=== PATIENT | female | born 1950 | race Caucasian/White ===

== ENCOUNTER 2016-03-31 15:45 | Emergency (ER) | payer MEDICARE, OTHER ==
[2016-03-31 16:05] VITALS: TEMP 98.1
--- NOTE | 2016-03-31 16:35 | ED.PDOC ---
History of Present Illness - General Chief Complaint: Neuro Symptoms/Deficits Stated Complaint: change in mental status Time Seen by Provider: 03/31/16 16:07 Source: RN notes reviewed, Vital Signs reviewed, EMS, [facility] records Exam Limitations: clinical condition - History of Present Illness Initial Comments: Patient is a 66 y/o [facility] patient who was sent due to altered mental status. It is unclear what her baseline is, however she was less responsive than usual per the [facility]. Upon arrival, patient vascillates between being minimally responsive to unresponsive. Patient was recently discharged from [facility] [place] for hydrocephalus which has been affecting her mental status. Timing/Duration: unsure, getting worse Severity: severe Improving Factors: nothing Worsening Factors: nothing Associated Symptoms: other - When asked if anything hurt, Patient shook her head no. Unable to ascertain any other symptoms. Allergies/Adverse Reactions: Allergies Amoxicillin Allergy (Verified 10/20/13 14:54) Cephalexin [From Keflex] Allergy (Verified 10/20/13 14:54) Cyclobenzaprine [From Flexeril] Allergy (Verified 10/20/13 14:54) Meperidine [From Demerol HCl] Allergy (Verified 10/20/13 14:54) Midazolam [From Versed] Allergy (Verified 10/20/13 14:54) Vancomycin Allergy (Verified 10/20/13 14:54) Home Medications: Ambulatory Orders Celecoxib [Celebrex] 200 mg PO BID 10/13/13 DULoxetine HCL [Cymbalta] 60 mg PO BEDTIME 10/13/13 Trazodone HCl 50 mg PO BEDTIME 04/22/14 Mesalamine [Delzicol] 800 mg PO BID 09/13/14 Oxycodone W/ Acetaminophen [Oxycodone/Acetaminophen 10-325 mg] 1 tab PO .Q4-6H PRN 09/13/14 Ranitidine HCl [Acid Control Maximum Stre] 150 mg PO BEDTIME 09/13/14 Simvastatin [Zocor] 20 mg PO BEDTIME 09/13/14 predniSONE [Prednisone] 1 mg PO DAILY 09/13/14 Acitretin [Soriatane] 10 mg PO DAILY@1200 02/19/16 Escitalopram Oxalate [Lexapro] 10 mg PO BEDTIME 02/19/16 Quetiapine Fumarate 50 mg PO BEDTIME 03/07/16 Lacosamide [Vimpat] 100 mg PO BID 03/31/16 Lactobacillus [Acidophilus] 1 cap PO DAILY 03/31/16 Oxcarbazepine [Trileptal] 150 mg PO BID 03/31/16 Review of Systems - Review of Systems Unable to Obtain Due To: clinical condition Past Medical History (General) - Patient Medical History Hx Seizures: No Hx Stroke: No Hx Dementia: Yes Hx Asthma: No Hx of COPD: No Hx Cardiac Disorders: No Hx Congestive Heart Failure: No Hx Pacemaker: No Hx Hypertension: Yes Hx Thyroid Disease: Yes Hx Diabetes: No Hx Gastroesophageal Reflux: Yes Hx Cancer: No Hx Hepatitis C: No Hx MRSA: No - Vaccination History Hx Tetanus, Diphtheria Vaccination: Yes Hx Influenza Vaccination: - unknown Hx Pneumococcal Vaccination: - unknown - Social History Hx Tobacco Use: No Hx Chewing Tobacco Use: No Hx Alcohol Use: No Hx Substance Use: No Hx Substance Use Treatment: No Hx Depression: No Hx Physical Abuse: No Hx Emotional Abuse: No Hx Suspected Abuse: No - Activities of Daily Living Group Home/Assisted Living (if applicable):: [facility] - Female History Patient : No Family Medical History - Family History Mother Family History: Unknown Living Status: Cause of : RA Hx Family Asthma: No Hx Family Congestive Heart Failure: No Hx Family Hypertension: Yes Hx Family Stroke: No Hx Cardiac Disease: No Hx Family Diabetes: Yes Hx Family Cancer: No Hx Family;Other: mother has RA Father Living Status: Hx Family Asthma: No Hx Family Congestive Heart Failure: No Hx Family Hypertension: No Hx Family Stroke: No Hx Cardiac Disease: No Hx Family Diabetes: No Hx Family Cancer: Yes Physical Exam - Physical Exam General Appearance: Lethargic Eye Exam: bilateral normal Ears, Nose, Throat: hearing grossly normal, normal ENT inspection, other - dry mucous membranes Neck: limited range of motion Respiratory: lungs clear, normal breath sounds, no respiratory distress, no accessory muscle use Cardiovascular/Chest: normal peripheral pulses, no edema, no gallop, no murmur, tachycardia Peripheral Pulses: dorsalis pedis,right: 2+, dorsalis pedis,left: 2+, posterior tibialis,right: 2+, posterior tibialis,left: 2+ Gastrointestinal/Abdominal: normal bowel sounds, non tender, soft, no organomegaly, no pulsatile mass Extremity: no pedal edema, no calf tenderness Neurologic: motor weakness, depressed affect, disoriented x 3, other - Patient would vascillate between a GCS of 4 to a GCS of 14 during her stay. Skin Exam: normal color, warm/dry Progress - Results/Orders Results/Orders: 03/31/16 03/31/16 15:57 17:13 Temperature 98.1 F Pulse Rate [ 105 H 100 H Left Brachial] Respiratory 20 20 Rate Blood Pressure 130/104 124/80 [Left Arm] O2 Sat by Pulse 91 L 95 Oximetry 03/31/16 16:13 EKG Assessment ONCE 03/31/16 16:15 EKG STAT 03/31/16 16:40 URINE CULTURE W/COLONY COUNT Stat 03/31/16 18:38 BLOOD CULTURE Stat 03/31/16 18:45 Aztreonam [Azactam Inj] 1 gm Sodium Chl 0.9% 50Ml Min-Bag+ [NS 50ml MINI-BAG+ ] 50 ml IVPB ONCE Laboratory Results WBC 9.9 K/mm3 (4.8-10.8) 03/31/16 16:45 RBC 5.07 M/mm3 (4.20-5.40) 03/31/16 16:45 Hgb 13.8 gm/dL (12.0-16.0) 03/31/16 16:45 Hct 43.1 % (36.0-47.0) 03/31/16 16:45 MCV 84.9 fl (81.0-99.0) 03/31/16 16:45 MCH 27.2 pg (27.0-31.0) 03/31/16 16:45 MCHC 32.1 g/dL (33.0-37.0) L 03/31/16 16:45 RDW 14.4 % (11.5-14.5) 03/31/16 16:45 Plt Count 293 K/mm3 (130-400) 03/31/16 16:45 MPV 9.6 fl (7.40-10.4) 03/31/16 16:45 Absolute Neuts (auto) 6.50 K/uL (1.8-6.8) 03/31/16 16:45 Absolute Lymphs (auto) 1.90 K/uL (1.0-3.4) 03/31/16 16:45 Absolute Monos (auto) 1.10 K/uL (0.2-0.8) H 03/31/16 16:45 Absolute Eos (auto) 0.30 K/uL (0.0-0.4) 03/31/16 16:45 Absolute Basos (auto) 0.10 K/uL (0.0-0.1) 03/31/16 16:45 Neutrophils % 65.5 % (42.0-78.0) 03/31/16 16:45 Lymphocytes % 19.6 % (20.0-50.0) L 03/31/16 16:45 Monocytes % 10.6 % (2.0-9.0) H 03/31/16 16:45 Eosinophils % 3.3 % (1.0-5.0) 03/31/16 16:45 Basophils % 1.0 % (0.0-2.0) 03/31/16 16:45 Sodium 140 mmol/L (135-145) 03/31/16 16:45 Potassium 4.0 mmol/L (3.6-5.0) 03/31/16 16:45 Chloride 104 mmol/L (101-111) 03/31/16 16:45 Carbon Dioxide 29 mmol/L (21-31) 03/31/16 16:45 Anion Gap 11.0 (12-18) L 03/31/16 16:45 BUN 19 mg/dL (7-18) H 03/31/16 16:45 Creatinine 0.62 mg/dL (0.6-1.3) 03/31/16 16:45 BUN/Creatinine Ratio 30.6 (10-20) H 03/31/16 16:45 Random Glucose 114 mg/dL (70-105) H 03/31/16 16:45 Serum Osmolality 282.5 mOsm/L (275-295) 03/31/16 16:45 Calcium 9.2 mg/dL (8.4-10.2) 03/31/16 16:45 Total Bilirubin 0.5 mg/dL (0.2-1.0) 03/31/16 16:45 AST 47 IU/L (10-42) H 03/31/16 16:45 ALT 20 IU/L (10-60) 03/31/16 16:45 Alkaline Phosphatase 109 IU/L (42-121) 03/31/16 16:45 Serum Total Protein 7.3 gm/dL (6.4-8.2) 03/31/16 16:45 Albumin 3.3 g/dl (3.2-5.5) 03/31/16 16:45 Globulin 4.0 gm/dL (2.3-3.5) H 03/31/16 16:45 Albumin/Globulin Ratio 0.8 (1.1-1.9) L 03/31/16 16:45 Urine Color Brown (Yellow) H 03/31/16 16:40 Urine Appearance Turbid (Clear) 03/31/16 16:40 Urine pH 6.0 (4.5-7.8) 03/31/16 16:40 Ur Specific Letts 1.025 (1.005-1.030) 03/31/16 16:40 Urine Protein 100 mg/dL H 03/31/16 16:40 Urine Glucose (UA) Negative mg/dL (Negative) 03/31/16 16:40 Urine Ketones 80 mg/dL (NEGATIVE) H 03/31/16 16:40 Urine Blood Large (Negative) H 03/31/16 16:40 Urine Nitrite Positive H 03/31/16 16:40 Urine Bilirubin Small (NEGATIVE) H 03/31/16 16:40 Urine Urobilinogen 1.0 mg/dL (0.2-1.0) 03/31/16 16:40 Ur Leukocyte Esterase Small (Negative) H 03/31/16 16:40 Urine RBC Tntc /hpf H 03/31/16 16:40 Urine WBC Tntc /hpf H 03/31/16 16:40 Ur Epithelial Cells Obscured by rbc's /hpf 03/31/16 16:40 Amorphous Sediment 3+ 03/31/16 16:40 Urine Bacteria 4+ H 03/31/16 16:40 - EKG/XRAY/CT XRAY: chest Xray Comments: Unremarkable CT: Head: Increased ventriculomegaly CT Ordered: Yes Departure - Departure Clinical Impression: Cerebral ventriculomegaly Altered mental status Qualifiers: Altered mental status type: transient alteration of awareness Qualifier Code: ( R40.4) Transient alteration of awareness Urinary tract infection Qualifiers: Urinary tract infection type: site unspecified Hematuria presence: without hematuria Qualifier Code: (N39.0) Urinary tract infection, site not specified Time of Disposition: 18:53 Disposition: Transfer to Hospital Condition: Poor Departure Forms: ED Discharge - Pt. Copy, Patient Portal Self Enrollment Home Medications: Ambulatory Orders Celecoxib [Celebrex] 200 mg PO BID 10/13/13 DULoxetine HCL [Cymbalta] 60 mg PO BEDTIME 10/13/13 Trazodone HCl 50 mg PO BEDTIME 04/22/14 Mesalamine [Delzicol] 800 mg PO BID 09/13/14 Oxycodone W/ Acetaminophen [Oxycodone/Acetaminophen 10-325 mg] 1 tab PO .Q4-6H PRN 09/13/14 Ranitidine HCl [Acid Control Maximum Stre] 150 mg PO BEDTIME 09/13/14 Simvastatin [Zocor] 20 mg PO BEDTIME 09/13/14 predniSONE [Prednisone] 1 mg PO DAILY 09/13/14 Acitretin [Soriatane] 10 mg PO DAILY@1200 02/19/16 Escitalopram Oxalate [Lexapro] 10 mg PO BEDTIME 02/19/16 Quetiapine Fumarate 50 mg PO BEDTIME 03/07/16 Lacosamide [Vimpat] 100 mg PO BID 03/31/16 Lactobacillus [Acidophilus] 1 cap PO DAILY 03/31/16 Oxcarbazepine [Trileptal] 150 mg PO BID 03/31/16 Transfer to Outside Facility - Transfer Information Accepting Provider:: Dr. Rojas Accepting Facility: [facility] [place] Reason for Transfer: required specialist not available - Neurologist
--- NOTE | 2016-03-31 16:55 | RAD ---
EXAM DESCRIPTION: XR CHEST 1 VIEW CLINICAL HISTORY: Altered mental status COMPARISON: 07 March 2016. TECHNIQUE: AP portable chest FINDINGS: Bilateral shoulder arthroplasties are observed. A poor inspiratory effect is noted. The heart is within the range of normal. IMPRESSION: Poor inspiratory effect otherwise unremarkable chest. Electronically signed by: Didier Saucedo MD 03/31/2016 16:54
--- NOTE | 2016-03-31 17:01 | CT ---
EXAM DESCRIPTION: CT HEAD WITHOUT IV CONTRAST CLINICAL HISTORY: 66-year-old female with altered mental status. COMPARISON: 03/07/2016. TECHNIQUE: CT brain without contrast. FINDINGS: Examination findings are limited by patient motion artifact. Multifocal regions of patchy hypo-attenuation are present in a subcortical and periventricular deep white matter distribution, nonspecific; however, most likely represent small vessel ischemic disease, age indeterminate. The ventricles and sulci are enlarged suggesting underlying volume loss, however the ventricles appear to be disproportionately enlarged in relation to the sulci raising the concern for normal pressure hydrocephalus or other ventriculomegaly of uncertain etiology in the correct clinical setting. Overall the ventricles are similar in size in comparison to the previous examination dated 03/07/2016. Periventricular deep white matter decreased attenuation may be secondary to extensive small vessel ischemic change, however transependymal fluid in the setting of acute ventriculomegaly cannot be completely excluded. While difficult to assess given differences in patient positioning, there appear to be interval increase in ventriculomegaly compared to examination dated 02/19/2016 currently measuring approximately 2 cm, previously 1.7 cm at the level of the lateral ventricle high convexity, and increased from pre MRI dated 11/21/2014 measuring 1.3 cm. The rodríguez-white matter differentiation is preserved. There is no mass effect,midline shift, intra- or extra-axial fluid collection/acute hemorrhage. The osseous structures are within normal limits. The paranasal sinuses reveal near-complete opacification concerning for chronic sinus disease. The mastoid air cells are clear on the left with post surgical changes of prior mastoidectomy on the right. IMPRESSION: 1. Increasing ventricular volumes as detailed above in comparison to examination dated 02/19/2016 and MRI dated 11/21/2014 raising the concern for increasing ventriculomegaly of uncertain etiology. 2. Nonspecific white matter change most likely small vessel ischemic disease, age indeterminate. 3. CT is insensitive for early evaluation of acute stroke. If there is clinical concern for acute ischemia, an MRI may be considered. 4. Examination findings limited by severe patient motion artifact. Electronically signed by: Beata Parisi MD 03/31/2016 16:59
[2016-03-31] MEDS ORDERED: AZTREONAM 1 GM in SODIUM CHL 0.9% 50ML MIN-BAG+ 50 ML IVPB ONE (18:45)
[2016-03-31] MEDS ORDERED: AZTREONAM 1 GM VIAL ONE (18:55)
[2016-03-31] MEDS ORDERED: SODIUM CHL 0.9% 50ML MIN-BAG+ 50 ML IVPB ONE (18:55)
[2016-03-31 19:55] VITALS: BP 128/57; O2SAT 95
== END 2016-03-31 19:55 | disposition short-term general hospital (02) ==
LOC: ER 15:45
DX: G93.89 Other specified disorders of brain (principal); N39.0 Urinary tract infection, site not specified; R40.4 Transient alteration of awareness; Z88.3 Allergy status to other anti-infective agents; Z88.6 Allergy status to analgesic agent; Z88.8 Allergy status to other drugs, medicaments and biological substances; Z79.899 Other long term (current) drug therapy; F03.90 Unspecified dementia, unspecified severity, without behavioral disturbance, psychotic disturbance, mood disturbance, and anxiety; I10 Essential (primary) hypertension; E07.9 Disorder of thyroid, unspecified; K21.9 Gastro-esophageal reflux disease without esophagitis
CPT/HCPCS: 36415; 70450; 71010; 80053; 81001; 85025; 87040; 87086; J7050

== ENCOUNTER 2016-04-13 12:44 | Emergency (ER) | payer MEDICARE, OTHER ==
[2016-04-13] MEDS ORDERED: LACTATED RINGERS 1,000 ML IVS ONE (14:12)
[2016-04-13] MEDS ORDERED: CLINDAMYCIN IV 600MG 600 MG in PREMIX BAG 1 BAG IVPB ONE (14:12)
[2016-04-13] MEDS ORDERED: FLUCONAZOLE SUSPENSION 40 MG/ML BOTTLE PO ONE (14:20)
[2016-04-13] MEDS ORDERED: CLINDAMYCIN IV 600MG 50 ML IVPB ONE (14:32)
--- NOTE | 2016-04-13 14:45 | ED.PDOC ---
History of Present Illness - General Chief Complaint: Fever Stated Complaint: blisters to left arm, red throat, dark urine Time Seen by Provider: 04/13/16 13:10 Source: EMS notes reviewed, assisted records Exam Limitations: clinical condition - History of Present Illness Initial Comments: the patient is a 66-year-old female presented from the assisted secondary to decreased oral intake due to oral pain and erythema. This has apparently been going on a couple of days. Additionally over the last 12-24 hours she started to develop blisters to the left elbow and left hand. She also has a blister to the left anterior heel. The blisters are fairly tense and thick. They're not easily ruptured. I see no susan pus in them. They do have a significant erythematous base. They do appear fairly painful to palpation. The patient is altered but apparently this has been her baseline for the last few weeks. She was recently at [facility] for evaluation of her normal pressure hydrocephalus and mental changes related to that. I do not have the results of that stay. She is currently taking Levaquin and Famvir for reasons that I cannot figure out. On physical exam the blisters are as described above. There are approximately 8 blisters left upper extremity primarily on the hand. One blister to the left heel. I do not see any other susan blisters however on her oral exam she does have what is probably ruptured blisters on the roof of her mouth as well as an extremely red tongue. Her mouth and mucous membranes are very dry. The patient herself does appear significantly dehydrated. There are some slight erythema in the areas of erythema in the perineum. No susan blisters seen at this time. Most of the blisters on the hands do appear to be pressure points. This is the same for the heel and elbow blister. Allergies/Adverse Reactions: Allergies Amoxicillin Allergy (Verified 10/20/13 14:54) Cephalexin [From Keflex] Allergy (Verified 10/20/13 14:54) Cyclobenzaprine [From Flexeril] Allergy (Verified 10/20/13 14:54) Meperidine [From Demerol HCl] Allergy (Verified 10/20/13 14:54) Midazolam [From Versed] Allergy (Verified 10/20/13 14:54) Vancomycin Allergy (Verified 10/20/13 14:54) Home Medications: Ambulatory Orders Celecoxib [Celebrex] 200 mg PO BID 10/13/13 DULoxetine HCL [Cymbalta] 60 mg PO BEDTIME 10/13/13 Trazodone HCl 50 mg PO BEDTIME 04/22/14 Mesalamine [Delzicol] 800 mg PO BID 09/13/14 Oxycodone W/ Acetaminophen [Oxycodone/Acetaminophen 10-325 mg] 1 tab PO .Q4-6H PRN 09/13/14 Ranitidine HCl [Acid Control Maximum Stre] 150 mg PO BEDTIME 09/13/14 Simvastatin [Zocor] 20 mg PO BEDTIME 09/13/14 predniSONE [Prednisone] 1 mg PO DAILY 09/13/14 Acitretin [Soriatane] 10 mg PO DAILY@1200 02/19/16 Escitalopram Oxalate [Lexapro] 10 mg PO BEDTIME 02/19/16 Quetiapine Fumarate 50 mg PO BEDTIME 03/07/16 Lacosamide [Vimpat] 100 mg PO BID 03/31/16 Lactobacillus [Acidophilus] 1 cap PO DAILY 03/31/16 Oxcarbazepine [Trileptal] 150 mg PO BID 03/31/16 Review of Systems - Review of Systems Unable to Obtain Due To: condition, dementia, clinical condition Past Medical History (General) - Patient Medical History Hx Seizures: No Hx Stroke: No Hx Dementia: Yes Hx Asthma: No Hx of COPD: No Hx Cardiac Disorders: No Hx Congestive Heart Failure: No Hx Pacemaker: No Hx Hypertension: Yes Hx Thyroid Disease: Yes Hx Diabetes: No Hx Gastroesophageal Reflux: Yes Hx Cancer: No Hx Hepatitis C: No Hx MRSA: No - Vaccination History Hx Tetanus, Diphtheria Vaccination: Yes Hx Influenza Vaccination: - unknown Hx Pneumococcal Vaccination: - unknown - Social History Hx Tobacco Use: No Hx Chewing Tobacco Use: No Hx Alcohol Use: No Hx Substance Use: No Hx Substance Use Treatment: No Hx Depression: No Hx Physical Abuse: No Hx Emotional Abuse: No Hx Suspected Abuse: No - Female History Patient : No Family Medical History - Family History Mother Family History: Unknown Living Status: Cause of : RA Hx Family Asthma: No Hx Family Congestive Heart Failure: No Hx Family Hypertension: Yes Hx Family Stroke: No Hx Cardiac Disease: No Hx Family Diabetes: Yes Hx Family Cancer: No Hx Family;Other: mother has RA Father Living Status: Hx Family Asthma: No Hx Family Congestive Heart Failure: No Hx Family Hypertension: No Hx Family Stroke: No Hx Cardiac Disease: No Hx Family Diabetes: No Hx Family Cancer: Yes Physical Exam - Physical Exam General Appearance: Alert - the patient is alert but she is not oriented. She will talk to you but most of what she says does not make sense. She obviously does not know what is going on. She does not appear to be in any acute distress. Palpation of her oral palate does appear painful as well as the blisters appears painful. At rest she appears to be in no immediate distress. Eye Exam: bilateral normal Ears, Nose, Throat: hearing grossly normal - she seems to hear well enough., other - see history of present illness for oropharynx. Neck: non-tender, supple Respiratory: lungs clear, normal breath sounds, no respiratory distress, no accessory muscle use Cardiovascular/Chest: normal peripheral pulses, no edema, tachycardia, other Peripheral Pulses: radial,right: 2+, radial,left: 2+ Gastrointestinal/Abdominal: normal bowel sounds, non tender Rectal Exam: deferred Back Exam: normal inspection - she does have some mild erythema posteriorly. I do not see any large blisters developing yet at this time. Extremity: no pedal edema, normal capillary refill, other - the patient has chronic decreased range of motion primarily to her left side from previous trauma. She does have multiple scars from previous surgeries. The blistered areas do appear painful to palpation. Neurologic: alert, normal mood/affect - for this patient over the last few months according to report Skin Exam: other - see history of present illness Comments: Vital Signs - 24 hr 04/13/16 13:54 Temperature 98.9 F Pulse Rate [ 121 H Right Arm] Respiratory 22 Rate Blood Pressure 103/73 [Right Arm] O2 Sat by Pulse 93 L Oximetry Progress - Progress Progress: 04/13/16 14:48 the patient is a 66-year-old female with a multitude of chronic medical problems presenting secondary to oral erythema and pain as well as the new development of primarily left upper extremity blistering. These do appear to be more along the lines of bulla. Clinically this does not appear to be bullous impetigo however we will cover with a dose of clindamycin. Penicillins , cephalosporins and vancomycin cannot be used due to allergy list. She does have a history of multiple autoimmune type disorders including the sets, Crohn' s and rheumatoid arthritis. There is apparently no history of any susan bullae forming diseases. This appears to be a new problem. Acquired epidermolysis bullosa and bullous pemphigoid based on clinical presentation appear to be higher on the differential list. The patient be transferred for dermatological evaluation. This certainly may be a drug reaction. I do not know what the Levaquin and the Famvir are on board for. These were apparently started at [place] several weeks ago when she was there for evaluation. I do not have the results of that evaluation. She does have some mild acute renal failure and is obviously dehydrated. She is receiving IV fluids here. Transferred for higher level of care. - Results/Orders Results/Orders: 04/13/16 13:10 STREP A SCREEN CULTURE Stat rapid strep is negative. 04/13/16 13:30 BLOOD CULTURE Stat 04/13/16 14:12 Clindamycin IV 600Mg [Cleocin IV 600mg] 600 mg Premix Bag 1 bag IVPB ONCE Lactated Ringers [Lr] 1,000 ml IVS ONCE Laboratory Results - last 24 hr 04/13/16 04/13/16 13:10 13:30 WBC 14.7 H RBC 5.40 Hgb 14.4 Hct 45.2 MCV 83.8 MCH 26.7 L MCHC 31.8 L RDW 15.2 H Plt Count 358 MPV 10.0 Absolute Neuts (auto) 9.60 H Absolute Lymphs (auto) 3.20 Absolute Monos (auto) 1.70 H Absolute Eos (auto) 0.00 Absolute Basos (auto) 0.20 H Neutrophils % 65.4 Lymphocytes % 21.6 Monocytes % 11.8 H Eosinophils % 0.1 L Basophils % 1.1 PT 15.1 H INR 1.350 PTT (SP) 34.8 Sodium 149 H Potassium 3.6 Chloride 115 H Carbon Dioxide 24 Anion Gap 13.6 BUN 38 H Creatinine 0.96 BUN/Creatinine Ratio 39.6 H Random Glucose 134 H Serum Osmolality 307.2 H Calcium 9.1 Total Bilirubin 0.4 AST 71 H ALT 34 Alkaline Phosphatase 122 H Serum Total Protein 6.9 Albumin 2.5 L Globulin 4.4 H Albumin/Globulin Ratio 0.6 L Group A Strep Rapid Negative Departure - Departure Clinical Impression: Bullous disorder, unspecified Disposition: Transfer to Hospital Home Medications: Ambulatory Orders Celecoxib [Celebrex] 200 mg PO BID 10/13/13 DULoxetine HCL [Cymbalta] 60 mg PO BEDTIME 10/13/13 Trazodone HCl 50 mg PO BEDTIME 04/22/14 Mesalamine [Delzicol] 800 mg PO BID 09/13/14 Oxycodone W/ Acetaminophen [Oxycodone/Acetaminophen 10-325 mg] 1 tab PO .Q4-6H PRN 09/13/14 Ranitidine HCl [Acid Control Maximum Stre] 150 mg PO BEDTIME 09/13/14 Simvastatin [Zocor] 20 mg PO BEDTIME 09/13/14 predniSONE [Prednisone] 1 mg PO DAILY 09/13/14 Acitretin [Soriatane] 10 mg PO DAILY@1200 02/19/16 Escitalopram Oxalate [Lexapro] 10 mg PO BEDTIME 02/19/16 Quetiapine Fumarate 50 mg PO BEDTIME 03/07/16 Lacosamide [Vimpat] 100 mg PO BID 03/31/16 Lactobacillus [Acidophilus] 1 cap PO DAILY 03/31/16 Oxcarbazepine [Trileptal] 150 mg PO BID 03/31/16 Transfer to Outside Facility - Transfer Information Accepting Provider:: dr macedo Accepting Facility: [facility] Reason for Transfer: required specialist not available
[2016-04-13 15:37] VITALS: BP 108/74; TEMP 97.9; O2SAT 94
[2016-04-13] MEDS ORDERED: HYDROmorphone HCL INJ 2 MG/ML VIAL IV ONE (15:55)
== END 2016-04-13 15:59 | disposition short-term general hospital (02) ==
LOC: ER 12:44
DX: R23.8 Other skin changes (principal); I10 Essential (primary) hypertension; K21.9 Gastro-esophageal reflux disease without esophagitis; E07.9 Disorder of thyroid, unspecified; E86.0 Dehydration; N19 Unspecified kidney failure; Z88.3 Allergy status to other anti-infective agents; Z88.8 Allergy status to other drugs, medicaments and biological substances; F03.90 Unspecified dementia, unspecified severity, without behavioral disturbance, psychotic disturbance, mood disturbance, and anxiety; Z79.899 Other long term (current) drug therapy
CPT/HCPCS: 36415; 80053; 85025; 85610; 85730; 87040; 87070; 87880; J1170; J3490; J7120